=== PATIENT | female | born 1955 | race Caucasian/White ===

== ENCOUNTER → 2016-10-25 | Outpatient (CLI) | payer OTHER ==
[2016-10-25 13:29] LABS: ALBUMIN 3.8 GM/DL (3.2-5.2); ALBUMIN/GLOBULIN RATIO 1.19 (1.00-1.93); ALKALINE PHOSPHATASE 70 U/L (45-117); ALT/SGPT 20 U/L (12-78); ANION GAP 8 MEQ/L (8-16); AST/SGOT 16 U/L (15-37); BILIRUBIN,TOTAL 0.4 MG/DL (0.2-1.0); BLOOD UREA NITROGEN 19 MG/DL (7-18); CALCIUM LEVEL 9.1 MG/DL (8.8-10.2); CARBON DIOXIDE LEVEL 30 MEQ/L (21-32); CHLORIDE LEVEL 105 MEQ/L (98-107); CHOLESTEROL LEVEL 181 MG/DL (<200); CREATININE FOR GFR 0.96 MG/DL (0.55-1.02); GLOMERULAR FILTRATION RATE > 60.0 (>45); GLUCOSE, FASTING 93 MG/DL (80-110); POTASSIUM SERUM 4.1 MEQ/L (3.5-5.1); SODIUM LEVEL 143 MEQ/L (136-145); TRIGLYCERIDES LEVEL 96 MG/DL (<150)
== END ==
LOC: M LAB 12:34
PROVIDERS: ATTEND Emergency Medicine
DX: E55.9 Vitamin D deficiency, unspecified (principal); E78.2 Mixed hyperlipidemia; E05.90 Thyrotoxicosis, unspecified without thyrotoxic crisis or storm

== ENCOUNTER → 2018-02-18 | Outpatient (CLI) | payer OTHER ==
[2018-02-18 13:24] LABS: ALBUMIN 3.5 GM/DL (3.2-5.2); ALBUMIN/GLOBULIN RATIO 1.06 (1.00-1.93); ALKALINE PHOSPHATASE 75 U/L (45-117); ALT/SGPT 24 U/L (12-78); ANION GAP 6 MEQ/L (8-16); AST/SGOT 18 U/L (7-37); BILIRUBIN,TOTAL 0.3 MG/DL (0.2-1.0); BLOOD UREA NITROGEN 22 MG/DL (7-18); CALCIUM LEVEL 8.8 MG/DL (8.8-10.2); CARBON DIOXIDE LEVEL 29 MEQ/L (21-32); CHLORIDE LEVEL 108 MEQ/L (98-107); CHOLESTEROL LEVEL 198 MG/DL (<200); CHOLESTEROL RISK RATIO 3.355 (<5); CREATININE FOR GFR 1.04 MG/DL (0.55-1.30); GLOMERULAR FILTRATION RATE 56.6 (>45); GLUCOSE, FASTING 99 MG/DL (70-100); HDL CHOLESTEROL 59 MG/DL (>40); LDL CHOLESTEROL 75.6 MG/DL (<100); NON-HDL-C 139 MG/DL; POTASSIUM SERUM 4.2 MEQ/L (3.5-5.1); SODIUM LEVEL 143 MEQ/L (136-145); TOTAL PROTEIN 6.8 GM/DL (6.4-8.2); TRIGLYCERIDES LEVEL 317 MG/DL (<150)
== END ==
LOC: M LAB 11:55
DX: E78.2 Mixed hyperlipidemia (principal); E05.90 Thyrotoxicosis, unspecified without thyrotoxic crisis or storm
CPT/HCPCS: 84443

== ENCOUNTER → 2019-06-16 | Outpatient (CLI) | payer OTHER, MEDICARE ==
[2019-06-16 09:46] LABS: BASO # 0.1 10^3/uL (0.0-0.2); BASO % 0.8 % (0.0-1.0); EOS # 0.1 10^3/uL (0.0-0.5); EOS % 1.6 % (0.0-3.0); HEMATOCRIT 47.5 % (36.0-47.0); HEMOGLOBIN 15.6 g/dl (12.0-15.5); LYMPH # 1.9 10^3/uL (1.5-5.0); LYMPH % 30.9 % (24.0-44.0); MEAN CORPUSCULAR HEMOGLOBIN 31.8 pg (27.0-33.0); MEAN CORPUSCULAR HGB CONC 32.8 g/dl (32.0-36.5); MEAN CORPUSCULAR VOLUME 96.7 fl (80.0-96.0); MONO # 0.5 10^3/uL (0.0-0.8); MONO % 7.7 % (0.0-5.0); NEUTROPHILS # 3.6 10^3/uL (1.5-8.5); NEUTROPHILS % 58.8 % (36.0-66.0); PLATELET COUNT, AUTOMATED 273 10^3/uL (150-450); RED BLOOD COUNT 4.91 10^6/uL (4.00-5.40); WHITE BLOOD COUNT 6.1 10^3/uL (4.0-10.0)
[2019-06-16 10:24] LABS: ALBUMIN 3.5 GM/DL (3.2-5.2); BILIRUBIN,TOTAL 0.3 MG/DL (0.2-1.0); CHOLESTEROL RISK RATIO 3.181 (<5); GLOMERULAR FILTRATION RATE 59.1 (>45); POTASSIUM SERUM 4.2 MEQ/L (3.5-5.1); THYROID STIMULATING HORMONE 1.19 uIU/ML (0.358-3.740); TOTAL 25(OH) VITAMIN D 20.7 NG/ML (30.0-100.0); TOTAL PROTEIN 6.7 GM/DL (6.4-8.2)
== END ==
LOC: M LAB 09:19
PROVIDERS: ATTEND Family Medicine
DX: I10 Essential (primary) hypertension (principal); E55.9 Vitamin D deficiency, unspecified

== ENCOUNTER → 2020-06-13 | Outpatient (CLI) | payer OTHER, MEDICARE ==
[2020-06-13 20:25] LABS: BASO # 0.1 10^3/uL (0.0-0.2); BASO % 0.8 % (0.0-1.0); EOS # 0.1 10^3/uL (0.0-0.5); EOS % 1.8 % (0.0-3.0); HEMATOCRIT 49.7 % (36.0-47.0); LYMPH % 26.7 % (24.0-44.0); MEAN CORPUSCULAR HEMOGLOBIN 31.3 pg (27.0-33.0); MEAN CORPUSCULAR HGB CONC 32.2 g/dl (32.0-36.5); MEAN CORPUSCULAR VOLUME 97.1 fl (80.0-96.0); MONO # 0.6 10^3/uL (0.0-0.8); MONO % 8.1 % (0.0-5.0); NEUTROPHILS # 4.7 10^3/uL (1.5-8.5); NEUTROPHILS % 62.5 % (36.0-66.0); PLATELET COUNT, AUTOMATED 252 10^3/uL (150-450); RED BLOOD COUNT 5.12 10^6/uL (4.00-5.40); WHITE BLOOD COUNT 7.6 10^3/uL (4.0-10.0)
[2020-06-13 20:37] LABS: APPEARANCE, URINE CLEAR (CLEAR); BACTERIA, URINE AUTO NEGATIVE (NEGATIVE); BILIRUBIN, URINE AUTO NEGATIVE (NEGATIVE); BLOOD, URINE BLOOD NEGATIVE (NEGATIVE); COLOR, URINE YELLOW (YELLOW); GLUCOSE, URINE (UA) AUTO NEGATIVE (NEGATIVE); KETONE, URINE AUTO NEGATIVE (NEGATIVE); LEUKOCYTE ESTERASE, URINE AUTO NEGATIVE (NEGATIVE); MUCUS, URINE SMALL (NEGATIVE); NITRITE, URINE AUTO NEGATIVE (NEGATIVE); PROTEIN, URINE AUTO NEGATIVE (NEGATIVE); RBC, URINE AUTO 3 /HPF (0-3); SPECIFIC GRAVITY URINE AUTO 1.018 (1.002-1.035); SQUAMOUS EPITHELIAL CELL UR AU 1 /HPF (0-6); UROBILINOGEN, URINE AUTO 0.2 mg/dL (0.0-2.0); WBC, URINE AUTO 1 /HPF (0-3)
[2020-06-13 20:47] LABS: ALBUMIN 3.8 GM/DL (3.2-5.2); ALT/SGPT 24 U/L (12-78); BILIRUBIN,TOTAL 0.2 MG/DL (0.2-1.0); BLOOD UREA NITROGEN 22 MG/DL (7-18); CALCIUM LEVEL 9.1 MG/DL (8.8-10.2); CARBON DIOXIDE LEVEL 31 MEQ/L (21-32); CHLORIDE LEVEL 107 MEQ/L (98-107); CHOLESTEROL LEVEL 234 MG/DL (<200); CHOLESTEROL RISK RATIO 4.034 (<5); CREATININE FOR GFR 1.25 MG/DL (0.55-1.30); FREE T4 1.13 NG/DL (0.76-1.46); GLOMERULAR FILTRATION RATE 45.5 (>45); GLUCOSE, FASTING 87 MG/DL (70-100); HDL CHOLESTEROL 58 MG/DL (>40); LIPASE 157 U/L (73-393); NON-HDL-C 176 MG/DL; POTASSIUM SERUM 4.7 MEQ/L (3.5-5.1); SODIUM LEVEL 143 MEQ/L (136-145); THYROID STIMULATING HORMONE 0.704 uIU/ML (0.358-3.740); TOTAL PROTEIN 7.1 GM/DL (6.4-8.2); TRIGLYCERIDES LEVEL 513 MG/DL (<150)
== END ==
LOC: M WUC 15:20
PROVIDERS: ATTEND Nurse Practitioner Family
DX: R10.30 Lower abdominal pain, unspecified (principal)

== ENCOUNTER → 2021-11-09 | Outpatient (REF) | payer MEDICARE, OTHER ==
[2021-11-09 17:15] LABS: BILIRUBIN,TOTAL 0.4 MG/DL (0.2-1.0); CALCIUM LEVEL 9.6 MG/DL (8.8-10.2); CHOLESTEROL RISK RATIO 3.277 (<5); CREATININE FOR GFR 1.06 MG/DL (0.55-1.30); GLOMERULAR FILTRATION RATE 54.9 (>45); POTASSIUM SERUM 4.3 MEQ/L (3.5-5.1)
== END ==
LOC: M LABWUC 15:53
PROVIDERS: ATTEND Nurse Practitioner Family
DX: I10 Essential (primary) hypertension (principal)

== ENCOUNTER 2025-04-07 08:15 | Inpatient (IN) | payer MEDICARE ==
[~2025-04-07] VITALS: Ht 160 cm; Wt 57.1 kg
[2025-04-07 09:54] LABS: BASO # 0.0 10^3/uL (0.0-0.2); BASO % 0.6 % (0.0-1.0); EOS # 0.0 10^3/uL (0.0-0.5); EOS % 0.6 % (0.0-3.0); LYMPH # 0.7 10^3/uL (1.5-5.0); LYMPH % 11.2 % (24.0-44.0); MONO # 0.4 10^3/uL (0.0-0.8); MONO % 6.7 % (2.0-8.0); NEUTROPHILS # 5.3 10^3/uL (1.5-8.5); NEUTROPHILS % 80.4 % (36.0-66.0); PLATELET COUNT, AUTOMATED 147 10^3/uL (150-450)
[2025-04-07] MEDS ORDERED: ISOVUE-370 76% 100 ML VIAL As Ordered ONE (10:15)
[2025-04-07 10:22] LABS: ALT/SGPT 15.0 U/L (7.0-40); AST/SGOT 28.0 U/L (<34); CALCIUM LEVEL 9.4 MG/DL (8.3-10.6); CARBON DIOXIDE LEVEL 29.0 MMOL/L (20-31); CHLORIDE LEVEL 99.0 MMOL/L (98-107); CREATININE FOR GFR 0.92 MG/DL (0.55-1.30); GLOMERULAR FILTRATION RATE 66.2 (>39); POTASSIUM SERUM 3.9 MMOL/L (3.5-5.1); SODIUM LEVEL 140.0 MMOL/L (136-145)
[2025-04-07 10:22] LABS: KETONE, URINE AUTO RFX NEGATIVE (NEGATIVE); MUCUS, URINE RFX SMALL (NEGATIVE); NITRITE, URINE AUTO RFX NEGATIVE (NEGATIVE); RBC, URINE AUTO RFX 2 /HPF (0-3); SQUAM EPITHELIAL CELL UR AURFX 1 /HPF (0-6); WBC, URINE AUTO RFX 2 /HPF (0-3)
[2025-04-07 10:23] LABS: LEUKOCYTE ESTERASE UR AUTO RFX TRACE (NEGATIVE)
[2025-04-07] MEDS ORDERED: LISI10TA22 PO (12:41)
[2025-04-07] MEDS ORDERED: ALPR0.25 PO (12:41)
[2025-04-07] MEDS ORDERED: D 1010004 PO (12:41)
[2025-04-07] MEDS ORDERED: METO1TAB7 PO (12:41)
[2025-04-07] MEDS ORDERED: HOME MED LIST COMPLETE! XX SCH (12:45)
[2025-04-07] MEDS ORDERED: ACETAMINOPHEN 325 MG TAB PO PRN (13:25)
[2025-04-07] MEDS: PANTOPRAZOLE 40MG VIAL IV SCH ×2 (13:53→21:08)
[2025-04-07] MEDS: ALPRAZolam 0.25 MG TAB PO PRN (13:57)
[2025-04-07] MEDS ORDERED: PROHANCE 279.3MG/ML 15ML VIAL As Ordered ONE (14:48)
[2025-04-07] MEDS: dexAMETHasone 4 MG/ML 1 ML VIAL IV SCH (18:16)
[2025-04-07] MEDS: SENNA 8.6 MG TAB PO SCH (20:55)
[2025-04-07] MEDS ORDERED: SENNA 8.6 MG TAB PO SCH (21:00)
[2025-04-07] MEDS: DOCUSATE SODIUM 100 MG CAPSULE PO SCH (21:07)
[2025-04-07 21:42] VITALS: BP 122/89; TEMP 97.5; O2SAT 95
[2025-04-08] MEDS: LORazepam 0.5 MG TAB PO PRN (00:48)
[2025-04-08 04:49] VITALS: BP 152/85; TEMP 97.5; O2SAT 92
[2025-04-08 06:51] LABS: CALCIUM LEVEL 8.9 MG/DL (8.3-10.6); CARBON DIOXIDE LEVEL 25.0 MMOL/L (20-31); CHLORIDE LEVEL 101.0 MMOL/L (98-107); CHOLESTEROL LEVEL 168.0 MG/DL (<200); CHOLESTEROL RISK RATIO 3.46 (<5); CREATININE FOR GFR 0.86 MG/DL (0.55-1.30); GLOMERULAR FILTRATION RATE 71.7 (>39); LDL CHOLESTEROL 99.9 MG/DL (<100); NON-HDL-C 119.5 MG/DL; POTASSIUM SERUM 5.0 MMOL/L (3.5-5.1); SODIUM LEVEL 139.0 MMOL/L (136-145); TRIGLYCERIDES LEVEL 98.0 MG/DL (<150)
[2025-04-08 08:13] LABS: BASO # 0.0 10^3/uL (0.0-0.2); BASO % 0.2 % (0.0-1.0); EOS # 0.0 10^3/uL (0.0-0.5); EOS % 0.0 % (0.0-3.0); LYMPH # 0.7 10^3/uL (1.5-5.0); LYMPH % 10.5 % (24.0-44.0); MONO # 0.1 10^3/uL (0.0-0.8); MONO % 1.0 % (2.0-8.0); NEUTROPHILS # 5.5 10^3/uL (1.5-8.5); NEUTROPHILS % 88.0 % (36.0-66.0); PLATELET COUNT, AUTOMATED 149 10^3/uL (150-450)
[2025-04-08] MEDS ORDERED: ASPIRIN 81 MG CHEWABLE TABLET PEG SCH (09:00)
[2025-04-08] MEDS ORDERED: METOPROLOL SUCC. 50 MG *XL* TAB PO SCH (09:00)
[2025-04-08] MEDS: diazePAM 2 MG TAB PO SCH (10:26)
[2025-04-08] MEDS: METOPROLOL SUCC. 25 MG *XL* TAB PO SCH (10:26)
[2025-04-08 12:00] VITALS: BP 114/67; TEMP 97.7; O2SAT 96
[2025-04-08 19:42] VITALS: BP 108/66; TEMP 97.9; O2SAT 97
[2025-04-09 03:48] VITALS: BP 178/99; TEMP 97.7; O2SAT 95
[2025-04-09 12:40] VITALS: BP 154/88; TEMP 97.7; O2SAT 96
[2025-04-09 19:58] VITALS: BP 157/87; TEMP 97.7; O2SAT 96
[2025-04-10 04:00] VITALS: BP 152/82; TEMP 97.7; O2SAT 96
[2025-04-10] MEDS: dexAMETHasone 4 MG/ML 1 ML VIAL IV SCH (06:35)
[2025-04-10] MEDS: PANTOPRAZOLE 40MG TAB PO SCH (10:24)
[2025-04-10 12:00] VITALS: BP 150/70; TEMP 97.9; O2SAT 98
[2025-04-10 20:23] VITALS: BP 173/87; TEMP 97.5; O2SAT 93
[2025-04-10 20:35] VITALS: BP 166/70
[2025-04-11] VITALS (8 sets, daily range): BP systolic 123–167; BP diastolic 59–90; TEMP 97.3–98.1; O2SAT 91–96
[2025-04-11] MEDS: ONDANSETRON 4MG 2ML VIAL IV PRN (05:07)
[2025-04-11 06:11] LABS: BASO # 0.0 10^3/uL (0.0-0.2); BASO % 0.1 % (0.0-1.0); EOS # 0.0 10^3/uL (0.0-0.5); EOS % 0.0 % (0.0-3.0); LYMPH # 1.0 10^3/uL (1.5-5.0); LYMPH % 10.5 % (24.0-44.0); MONO # 0.6 10^3/uL (0.0-0.8); MONO % 5.9 % (2.0-8.0); NEUTROPHILS # 8.2 10^3/uL (1.5-8.5); NEUTROPHILS % 83.1 % (36.0-66.0); PLATELET COUNT, AUTOMATED 165 10^3/uL (150-450)
[2025-04-11 06:21] LABS: INR 0.95
[2025-04-11 06:39] LABS: CALCIUM LEVEL 8.3 MG/DL (8.3-10.6); CARBON DIOXIDE LEVEL 31.0 MMOL/L (20-31); CHLORIDE LEVEL 101.0 MMOL/L (98-107); CREATININE FOR GFR 1.03 MG/DL (0.55-1.30); GLOMERULAR FILTRATION RATE 57.8 (>39); POTASSIUM SERUM 3.8 MMOL/L (3.5-5.1); SODIUM LEVEL 143.0 MMOL/L (136-145)
[2025-04-11] MEDS: MEMANTINE 5 MG TABLET PO SCH (11:01)
[2025-04-11] MEDS ORDERED: ONDANSETRON 4MG ORAL DISINTEGRATING TAB PO PRN (15:00)
[2025-04-11] MEDS: LIDOCAINE 1% MDV 20 ML VIAL SC STA (16:58)
[2025-04-11] MEDS: ONDANSETRON 4MG ORAL DISINTEGRATING TAB PO SCH (17:28)
[2025-04-11] MEDS: diazePAM 2 MG TAB PO SCH (21:04)
[2025-04-12 04:00] VITALS: BP 132/62; TEMP 97.9; O2SAT 94
[2025-04-12] MEDS: ALPRAZolam 0.25 MG TAB PO PRN (06:00)
[2025-04-12 09:41] VITALS: BP 132/62
[2025-04-12] MEDS ORDERED: ONDA-282 PO (12:07)
[2025-04-12] MEDS ORDERED: METO1TAB32 PO (12:07)
[2025-04-12] MEDS ORDERED: MEMA1TAB3 PO (12:07)
[2025-04-12] MEDS ORDERED: PANT40TA29 PO (12:07)
[2025-04-12] MEDS ORDERED: COLA100C5 PO (12:07)
[2025-04-12] MEDS ORDERED: OXYC-517 PO (12:07)
[2025-04-12] MEDS ORDERED: DEXA4TA PO (12:07)
[2025-04-12] MEDS ORDERED: SENN18TA PO (12:07)
[2025-04-12] MEDS ORDERED: DIAZ2TAB PO (12:07)
[2025-04-12] MEDS ORDERED: ACET32TAB PO (12:07)
[2025-04-12] MEDS ORDERED: ALPR0.25 PO (14:53)
== END 2025-04-12 15:54 | disposition home or self-care (01) | DRG 180 ==
LOC: M ED 08:15 → M ED INP 13:24 → M MSPAV 21:39
PROVIDERS: ADMIT Internal Medicine Nephrology; ATTEND Internal Medicine
PROC: B246ZZZ Ultrasonography of Right and Left Heart (ICD-10-PCS; 2025-04-07)
PROC: 0BBC3ZX Excision of Right Upper Lung Lobe, Percutaneous Approach, Diagnostic (ICD-10-PCS; principal; 2025-04-11 15:00)
DX: C34.11 Malignant neoplasm of upper lobe, right bronchus or lung (principal); G93.6 Cerebral edema; J95.811 Postprocedural pneumothorax; C79.31 Secondary malignant neoplasm of brain; C79.51 Secondary malignant neoplasm of bone; C79.70 Secondary malignant neoplasm of unspecified adrenal gland; M84.451A Pathological fracture, right femur, initial encounter for fracture; R26.89 Other abnormalities of gait and mobility; F41.9 Anxiety disorder, unspecified; G25.0 Essential tremor; M54.50 Low back pain, unspecified; J43.9 Emphysema, unspecified; I10 Essential (primary) hypertension; E78.00 Pure hypercholesterolemia, unspecified; K21.9 Gastro-esophageal reflux disease without esophagitis; G89.29 Other chronic pain; F17.200 Nicotine dependence, unspecified, uncomplicated; K59.00 Constipation, unspecified; Z79.899 Other long term (current) drug therapy; Z88.0 Allergy status to penicillin; Z88.1 Allergy status to other antibiotic agents

== ENCOUNTER → 2025-04-19 | Outpatient (CLI) | payer MEDICARE ==
[~2025-04-19] MED LIST: ACET32TAB PO; ALPR0.25 PO; COLA100C5 PO; D 1010004 PO; DEXA1TA PO; DEXA2TA PO; DEXA4TA PO; DIAZ2TAB PO; LACT20EL PO; LISI10TA22 PO; MEMA1TAB3 PO; METO1TAB32 PO; METO1TAB7 PO; ONDA-282 PO; OXYC-517 PO; PANT40TA29 PO; SENN18TA PO
== END ==
LOC: M PAL 15:16
PROVIDERS: ATTEND Physician Assistant
DX: Z51.5 Encounter for palliative care (principal); Z66 Do not resuscitate; C34.00 Malignant neoplasm of unspecified main bronchus; C78.00 Secondary malignant neoplasm of unspecified lung; Z79.891 Long term (current) use of opiate analgesic; Z88.0 Allergy status to penicillin; Z88.1 Allergy status to other antibiotic agents; Z88.6 Allergy status to analgesic agent; Z79.899 Other long term (current) drug therapy

== ENCOUNTER 2025-04-21 12:57 | Outpatient (RCR) | payer MEDICARE ==
[~2025-04-21 12:57] MED LIST changes: -DEXA1TA PO; -DEXA2TA PO; +ISOVUE-370 76% 100 ML VIAL As Ordered ONE
[2025-04-26] MEDS ORDERED: DEXA4TA PO (15:06)
[2025-04-27] MEDS ORDERED: DEXA1TA PO (10:43)
[2025-04-27] MEDS ORDERED: DEXA2TA PO (10:43)
[2025-04-27] MEDS ORDERED: DEXA4TA PO (10:43)
== END 2025-04-24 ==
LOC: M ONCR 12:57
PROVIDERS: ATTEND General Practice
DX: Z51.0 Encounter for antineoplastic radiation therapy (principal); C79.31 Secondary malignant neoplasm of brain
CPT/HCPCS: 77336; 77412; Q9967

== ENCOUNTER → 2025-04-27 | Outpatient (CLI) | payer MEDICARE ==
[~2025-04-27] MED LIST changes: +DEXA1TA PO; +DEXA2TA PO; -ISOVUE-370 76% 100 ML VIAL As Ordered ONE
== END ==
LOC: M ONCR 10:25
PROVIDERS: ATTEND General Practice
DX: C79.31 Secondary malignant neoplasm of brain (principal); Z92.3 Personal history of irradiation